=== PATIENT | female | born 1975 | race Caucasian/White ===

== ENCOUNTER 2023-08-25 09:30 | Emergency (ER) | payer OTHER, SELFPAY ==
[2023-08-25 09:35] VITALS: BP 142/86; PULSE 86; RESP 24; TEMP 36.4; O2SAT 95
--- NOTE | 2023-08-25 09:44 | XR_ITS ---
The [address] [address] Patient Name: BETTE XIONG MRN: [id number] date: 1975 Sex: F Assigned Patient Location: ER Current Patient Location: ED.MAIN Accession/Order Number: [id number] Exam Date: 08/25/2023 10:03 Report Date: 08/25/2023 11:17 At the request of: RAYSA BLANCA Procedure: XR lumbar spine 2-3V PROCEDURE: XR lumbar spine 2-3V DATE: 08/25/2023 9:03 AM CDT COMPARISONS: CT the abdomen and pelvis 06/26/2021 CLINICAL INDICATION: 48 years Female pulling heavy object, felt pop FINDINGS: There is evidence of bone demineralization. There is no significant degenerative change. There is evidence of anterior wedging of the L2 vertebral body. It appears there is compression of the central and left aspect of the anterior L2 vertebral body not seen on previous CT. Further workup should be considered either with CT or MRI. XR/XR lumbar spine 2-3V IMPRESSION: Bone demineralization, stable There is evidence of mild cephalad endplate compression of L2. Given the history provided, this probably represents recent/acute compression fracture. Follow-up cross-sectional imaging recommended. CT or MRI could be utilized depending on the clinical scenario. Electronically authenticated by: KITTY HOSKINS Date: 08/25/2023 11:17
--- NOTE | 2023-08-25 09:48 | ED.BACK1 ---
HPI - Back Pain/Injury General Chief Complaint: Back Pain/Injury Stated Complaint: BACK PAIN Time Seen by Provider: 08/25/23 09:41 Source: patient Mode of arrival: Wheelchair Limitations: no limitations History of Present Illness HPI Narrative: 48-year-old female presents for left lower back pain. She is pulling on a heavy item and she felt a popping sensation in her left lower back. She did not fall. The pain is severe and worse if she moves. It doesn't seem to radiate intoo her legs. Related Data Previous Rx's Medication Instructions Recorded hydrocodone 5 mg-acetaminophen 325 1 tab PO Q6H PRN pain 5 days #20 08/25/23 mg tablet tabs Allergies Allergy/AdvReac Type Severity Reaction Status Date / Time No Known Drug Allergies Allergy Verified 08/25/23 09:35 Review of Systems ROS Narrative A ten point review of systems is negative except as noted above. Exam Narrative Exam Narrative: Nurses note and vital signs reviewed and patient is not hypoxic. General: The patient appears uncomfortable and is somewhat tremorous. Skin: Warm, dry, no pallor noted. There is no rash noted. Head: Normocephalic, atraumatic Eye: Normal conjunctiva, no drainage Ears, Nose, Mouth, and Throat: oral mucosa is moist. Nares patent. Cardiovascular: Regular Rate and Rhythm Respiratory: Patient is in no distress, no accessory muscle use, lungs are clear to auscultation, no wheezing, rales or rhonchi Back: bruise or rash present. There seems to be some tenderness in the left lower back. GI: nontender Musculoskeletal: The patient has no evidence of calf tenderness, no pitting edema, symmetrical pulses noted bilaterally Neurological: A&O , normal speech Psychiatric: Cooperative Constitutional Vital Signs, click to edit/add: Last Vital Signs Temp 97.6 F 08/25/23 09:35 Pulse 76 08/25/23 10:38 Resp 18 08/25/23 10:38 BP 144/75 H 08/25/23 10:38 Pulse Ox 97 08/25/23 10:38 O2 Del Method Room Air 08/25/23 10:38 Course Vital Signs Vital signs: Vital Signs Temperature 97.6 F 08/25/23 09:35 Pulse Rate 86 08/25/23 09:35 Respiratory Rate 24 08/25/23 09:35 Blood Pressure 142/86 H 08/25/23 09:35 Pulse Oximetry 95 08/25/23 09:35 Oxygen Delivery Method Room Air 08/25/23 09:35 Temperature 97.6 F 08/25/23 09:35 Pulse Rate 76 08/25/23 10:38 Respiratory Rate 18 08/25/23 10:38 Blood Pressure 144/75 H 08/25/23 10:38 Pulse Oximetry 97 08/25/23 10:38 Oxygen Delivery Method Room Air 08/25/23 10:38 MDM - Back Pain/Injury MDM Narrative Medical decision making narrative: L2 compression fracture is identified and she is referred to orthopedics. Treatment diagnosis and follow-up were discussed with the patient. Differential Diagnosis Differential diagnosis: Likely strain of lumbar region and other (compression fracture) Imaging Data lumbar x-rays: Radiologist's impression: Procedure: XR lumbar spine 2-3V PROCEDURE: XR lumbar spine 2-3V DATE: 08/25/2023 9:03 AM CDT COMPARISONS: CT the abdomen and pelvis 06/26/2021 CLINICAL INDICATION: 48 years Female pulling heavy object, felt pop FINDINGS: There is evidence of bone demineralization. There is no significant degenerative change. There is evidence of anterior wedging of the L2 vertebral body. It appears there is compression of the central and left aspect of the anterior L2 vertebral body not seen on previous CT. Further workup should be considered either with CT or MRI. IMPRESSION: Bone demineralization, stable There is evidence of mild cephalad endplate compression of L2. Given the history provided, this probably represents recent/acute compression fracture. Follow-up cross-sectional imaging recommended. CT or MRI could be utilized depending on the clinical scenario. Electronically authenticated by: KITTY HOSKINS Date: 08/25/2023 11:17 Discharge Plan Discharge Chief Complaint: Back Pain/Injury Clinical Impression: Closed compression fracture of L2 vertebra Patient Disposition: Home, Self-Care Time of Disposition Decision: 11:43 Condition: Good Mode of Transportation: Private Vehicle Prescriptions / Home Meds: New hydrocodone-acetaminophen 5-325 mg tablet 1 tab PO Q6H PRN (Reason: pain) 5 Days Qty: 20 0RF Instructions: Osteoporosis (ED), Vertebral Compression Fracture (ED), Procedures for Compression Fractures of the Spine (DC) Additional Instructions: follow-up with Dr. Terrazas. Stand Alone Forms: Portal Instructions Referrals: Sheryl Licea [Primary Care Provider] - 1 week
[2023-08-25] MEDS: ORPHENADRINE 60 MG/ 2 ML VIAL IM (09:51)
[2023-08-25] MEDS: KETOROLAC TROMETHAMINE 60 MG/2 ML VIAL IM (09:52)
[2023-08-25 10:38] VITALS: BP 144/75; PULSE 76; RESP 18; O2SAT 97
[2023-08-25 11:56] VITALS: BP 150/77; PULSE 98; RESP 18; O2SAT 99
== END 2023-08-25 12:09 | disposition home or self-care (01) ==
PROVIDERS: Emergency Provider Emergency Medicine; PCP Nurse Practitioner
DX: S32.029A Unspecified fracture of second lumbar vertebra, initial encounter for closed fracture (principal); X50.0XXA Overexertion from strenuous movement or load, initial encounter
CPT/HCPCS: 72100; 96372; 99284